=== PATIENT | female | born 1975 | race Two or more races ===

== ENCOUNTER → 2020-11-04 | Outpatient (CLI) | payer OTHER ==
[2020-09-28 15:00] VITALS: BP 94/52
[~2020-11-04] MED LIST: ALBU2.5V8 NEB; LEVO750T5 PO; NITR100C6 PO; PRED-220 PO; SUMA50TA3 PO
--- NOTE | 2020-11-05 08:28 | RAD ---
CT THORAX WO INDICATION: ILD COMPARISON STUDY: 09/12/2020. TECHNIQUE: Unenhanced axial images were obtained through the lungs and upper abdomen. Coronal and sa gittal multiplanar reconstructions were also obtained. PQRS compliance statement: One or more of the following individualized dose reduction techniques were utilized for this examinat ion: 1. Automated exposure control 2. Adjustment of the mA and/or kV according to patient size 3. Use of iterative reconstruction technique FINDINGS: Lungs and Airways: Bilateral mid and lower lung predominant groundglass opacities, peribronchovascula r interstitial thickening, architectural distortion, and traction bronchiectasis. No honeycombing. Pleura: The pleural spaces are normal. Heart and Mediastinum: The visualized thyroid gland is normal in size and attenuation. No axillary or supraclavicular lymphadenopathy. No mediastinal, hilar or retrocrural lymphadenopathy. Cardiomegaly. The great vessels of the thorax are normal. Abdomen: The visualized abdominal organs demonstrate no abnormality. Bones and Soft Tissues: The visualized skeletal structures and soft tissues of the chest wall are wit hin normal limits. IMPRESSION: Findings of interstitial lung disease, such as NSIP. No honeycombing. Electronically signed by: Mina Grijalva MD (11/05/2020 8:26 AM) [id number]
== END ==
LOC: CT 10:36
PROVIDERS: ATTEND Internal Medicine Critical Care Medicine
DX: J84.9 Interstitial pulmonary disease, unspecified (principal); I51.7 Cardiomegaly
CPT/HCPCS: 71250

== ENCOUNTER 2020-11-11 15:15 | Emergency (ER) | payer OTHER ==
[~2020-11-11] VITALS: Ht 157.5 cm; Wt 68.1 kg
[2020-11-11 15:39] VITALS: BP 103/56
[2020-11-11] MEDS ORDERED: DEXAMETHASONE 4 MG TABLET PO ONE (16:00)
--- NOTE | 2020-11-11 16:18 | RAD ---
XR CHEST 1V CLINICAL INDICATIONS: Reason: fever, cough, COVID PATIENT UNDER INVESTIGATION COMPARISON: September 26, 2020. Findings: Bibasilar interstitial lung infiltrates are again evident which has improved on the left si de and stable on the right side. No pleural effusion or pneumothorax is seen. The heart size, pulmona ry vasculature, mediastinum and both heydi are stable. IMPRESSION: Bibasilar interstitial lung infiltrates with improvement on the left side since September 26, 2020. Electronically signed by: Edward Bustillo MD (11/11/2020 4:16 PM) [id number]
[2020-11-11 16:23] LABS: MONONUCLEOSIS PATIENT NEGATIVE (NEGATIVE)
--- NOTE | 2020-11-11 16:27 | PHYS DOC ---
Past Medical History Past Medical History: Other Additional Past Medical Histor: cervical cancer, fibromyalgia, RA, sjogren syndrome Past Surgical History: Additional Past Surgical Histo: cervial ca removed Smoking Status: Never Smoker Alcohol Use: None General Adult EDM: Chief Complaint: FEVER HPI: HPI: Patient is a 45 year old [f__sex] who presents with [] Review of Systems: Review of Systems: Constitutional: Denies fever or chills Eyes: Denies redness or eye pain HENT: Denies nasal congestion or sore throat Respiratory: Denies cough or shortness of breath Cardiovascular: Denies chest pain or palpitations GI: Denies abdominal pain, nausea, or vomiting : Denies dysuria or hematuria Musculoskeletal: Denies back pain or joint pain Integument: Denies rash or skin lesions Neurologic: Denies headache, focal weakness or sensory changes Complete systems were reviewed and found to be within normal limits, except as documented in this note. Heart Score: C/O Chest Pain: N/A Current Medications: Current Medications Medications (Trade) Dose Ordered Sig/Lawrence Start Time Stop Time Status Last Admin Dose Admin Dexamethasone (Decadron) 10 mg 1X ONCE 11/11/20 16:00 11/11/20 16:01 DC Allergies: Allergies: Allergies Coded Allergies Type Severity Reaction Last Updated Verified amoxicillin Allergy Intermediate rash 09/13/20 Yes hydrocodone Adverse Reaction Intermediate upset stomache and anxiety 09/13/20 Yes oxycodone Adverse Reaction Intermediate upset stomache and anxiety 09/13/20 Yes Physical Exam: PE: Constitutional: Well developed, well nourished, no acute distress, non-toxic appearance HENT: Normocephalic, atraumatic Eyes: PERRL, EOMI, conjunctiva normal, no discharge Neck: Normal range of motion, no tenderness, supple Lungs & Thorax: No respiratory distress, equal chest rise and fall Abdomen: Soft, no tenderness Skin: Warm, dry, no erythema, no rash Back: No tenderness, no CVA tenderness Extremities: No tenderness, ROM intact, no edema Neurologic: Alert and oriented X 3, normal motor function, normal sensory function, no focal deficits noted Psychologic: Affect normal, judgment normal Current Patient Data: Labs: Laboratory Tests Test 11/11/20 16:01 Heterophil Agglutinins Negative (NEGATIVE) Vital Signs: Vital Signs Date Time Temp Pulse Resp B/P (MAP) Pulse Ox O2 Delivery O2 Flow Rate FiO2 11/11/20 15:39 98.5 100 20 103/56 (72) 100 Nasal Cannula 2.0 98.5 EKG: EKG: [] Radiology/Procedures: Radiology/Procedures: PROCEDURE: CHEST AP ONLY XR CHEST 1V CLINICAL INDICATIONS: Reason: fever, cough, COVID PATIENT UNDER INVESTIGATION COMPARISON: September 26, 2020. Findings: Bibasilar interstitial lung infiltrates are again evident which has improved on the left side and stable on the right side. No pleural effusion or pneumothorax is seen. The heart size, pulmonary vasculature, mediastinum and both heydi are stable. IMPRESSION: Bibasilar interstitial lung infiltrates with improvement on the left side since September 26, 2020. Electronically signed by: Edward Bustillo MD (11/11/2020 4:16 PM) [id number] Course & Med Decision Making: Course & Med Decision Making Pertinent Labs and Imaging studies reviewed. (See chart for details) Patient stable for discharge with outpatient follow-up with PCP. Discussed findings and plan with patient, who acknowledges understanding and agreement. DeliveryEdge Disclaimer: DeliveryEdge Disclaimer: This electronic medical record was generated, in whole or in part, using a voice recognition dictation system. Departure Departure Impression: Primary Impression: Pharyngitis Qualified Codes: J02.9 - Acute pharyngitis, unspecified Additional Impressions: Pneumonia Qualified Codes: J18.9 - Pneumonia, unspecified organism Suspected 2019 novel coronavirus infection Disposition: HOME / SELF CARE / HOMELESS Condition: STABLE Referrals: NON,STAFF (PCP) Patient Instructions: Pneumonia, Adult, Vpfi-zv-Ocvf, Viral and Bacterial Pharyngitis, [id number]-Iexl Additional Instructions: Take over the counter Tylenol and/or Ibuprofen for fever/chills. Please take new antibiotic as prescribed. You have been tested for or diagnosed with COVID-19. It is an infection caused by a new type of coronavirus. COVID-19 will cause cold-like or mild flu symptoms in most. It can cause more severe symptoms like problems breathing in some. There is no treatment for COVID-19. The body will clear the infection over time. Self-care will help to ease discomfort. Steps to Take: Self-Care Rest as needed. Healthy habits may help you feel better. Steps include: Choose healthy foods including fruits and vegetables. Drink water throughout the day. Get plenty of sleep each night. If you smoke, try to quit. It may ease breathing. Avoid alcohol. Keep Others Healthy The virus can spread to others. Droplets are released every time you sneeze or cough. The droplets can get into the mouth, nose, or eyes of people near you and lead to infection. To lower the chances of spreading COVID-19 to others: Stay at home until your doctor has said it is safe to leave. If you tested positive this will mean staying isolated until both of the following are true: At least 7 days have passed since the start of illness. You are free of fever for at least 72 hours without the use of medicine. During this time: - Avoid public areas, events, or transportation. Do not return to work or [employer] until your doctor has said it is safe to do so. - Call ahead if you need to go to a medical center. Let them know you may have COVID-19. It will help them guide you where to go. They may also ask you to wear a facemask when you come to the office. - If you call for emergency medical services, let them know you may have COVID- 19. While at home: - Try to avoid close contact with others. Stay about 6 feet away. - If possible, spend most of your time in a separate room from others. - Use a face mask if you will be in close contact with others such as sharing a room or vehicle. - Have someone wipe down common surfaces in the home. Use household funeral service licensee every day on areas like doorknobs, counters, or sinks. - Cough or sneeze into a tissue. Throw the tissue away right after use. If a tissue is not available, cough or sneeze into your elbow. - Wash your hands often. Wash them after sneezing or coughing. Use soap and water and wash for at least 20 seconds. Alcohol based hand char dust cleaner and salvager can be used if soap and water is not available. - Do not prepare food for others. Avoid sharing personal items like forks, spoons, or toothbrushes. - Avoid close contact with pets while you are sick. There is no evidence of the virus passing to pets. This is a safety step until more is known about this virus. Isolation can be frustrating. Social interaction can help. Keep in touch with friends and family through phone and tech options. You can still interact with others in your home, just keep a safe distance of about 6 feet. Follow-up: Your doctors office will check in with you to see if there are any changes in your health. You may be asked to keep track of symptoms to share with them. They will also let you know when you are clear to be in public again. Problems to Look Out For: Contact your doctor if your recovery is not going as you expect. Get emergency care if you have problems such as: - Trouble breathing - Nonstop chest pain or pressure - Changes in awareness, confusion, or problems waking - Lips or face have bluish color - Worsening of symptoms If you think you have an emergency, call for emergency medical services right away. As taken from [facility] Azithromycin (ZITHROMAX) 250 Mg Tablet 1 PKG PO UD for pneumonia, #6 TAB Take 2 tablets on day 1 and then 1 tablet each day for the next 4 days as directed Prov: CALEB SHEPPARD DO 11/11/20 CALEB SHEPPARD DO November 11, 2020 16:27
[2020-11-11] MEDS ORDERED: AZIT250T PO (17:49)
--- NOTE | 2020-11-14 09:49 | NUR ---
IP: Informed pt of negative COVID test. pt verbalized understanding.
== END 2020-11-11 18:57 | disposition home or self-care (01) ==
LOC: ER 15:15
DX: J18.9 Pneumonia, unspecified organism (principal); Z20.822 Contact with and (suspected) exposure to COVID-19; J02.9 Acute pharyngitis, unspecified; Z88.1 Allergy status to other antibiotic agents; Z88.5 Allergy status to narcotic agent
CPT/HCPCS: 71045; 86308; 87070; 87880; 99284; U0003; U0005

== ENCOUNTER → 2020-12-09 | Outpatient (CLI) | payer OTHER ==
[2020-11-11 15:39] VITALS: BP 103/56
[~2020-12-09] MED LIST changes: +AZIT250T PO
--- NOTE | 2020-12-09 09:43 | CARD ---
MR#: [id number] Date of Study: 12/09/2020 Ordering Physician: TASNEEM PENA, Referring Physician: Leanne ALLEN: Rasheed Heath [facility] APPROVED REPORT EXAM: Two-dimensional and M-mode echocardiogram with Doppler and color Doppler. Other Information Quality : Average Rhythm : NSR INDICATION Dyspnea 2D DIMENSIONS Left Atrium(2D)3.6 (1.6-4.0cm)IVSd0.8 (0.7-1.1cm) Aortic Root(2D)3.0 (2.0-3.7cm)LVDd4.7 (3.9-5.9cm) LVOT Diameter2.1 (1.8-2.4cm)PWd1.1 (0.7-1.1cm) IVSs1.4 (0.8-1.2cm)LVDs3.5 (2.5-4.0cm) FS (%) 25.5 %PWs1.4 (0.8-1.2cm) SV52.4 mlLVEF(%)50.2 (>50%) Aortic Valve AoV Peak Willie.120.4cm/sAoV VTI20.4cm AO Peak GR.5.8mmHgLVOT Peak Willie.105.1cm/s LVOT VTI 18.15cmAO Mean GR.3mmHg CODY (VMAX)3.11nv6ZTA (VTI)3.17cm2 Mitral Valve MV E Izozwmvy58.2cm/sMV DECEL [id number] MV A Ugkogjea84.9cm/sMV GZV12pm E/A Ratio0.8MVA (PHT)2.54cm2 TDI E/Lateral E'5.4E/Medial E'7.6 Pulmonary Valve PV Peak Oluqpzla66.6cm/sPV Peak Grad.3mmHg Tricuspid Valve TR P. Ctkdysmf185dm/sTR Peak Gr.22mmHg LEFT VENTRICLE The left ventricle is normal size. There is normal left ventricular wall thickness. The left ventricu lar systolic function is normal. The ejection fraction is 55-60%. There is normal LV segmental wall m otion. Transmitral Doppler flow pattern is Grade I-abnormal relaxation pattern. No left ventricle thr ombus noted on this study. There is no ventricular septal defect visualized. RIGHT VENTRICLE The right ventricle is borderline dilated. There is normal right ventricular wall thickness. The righ t ventricular systolic function is normal. ATRIA The left atrium size is normal. The right atrium size is normal. The interatrial septum is intact wit h no evidence for an atrial septal defect or patent foramen ovale as noted on 2-D or Doppler imaging. AORTIC VALVE The aortic valve is normal in structure and function. Doppler and Color Flow revealed no significant aortic regurgitation. There is no significant aortic valvular stenosis. There is no aortic valvular v egetation. MITRAL VALVE The mitral valve is normal in structure and function. There is no evidence of mitral valve prolapse. There is no mitral valve stenosis. Doppler and Color Flow revealed no mitral valve regurgitation note d. TRICUSPID VALVE The tricuspid valve is normal in structure and function. Doppler and Color Flow revealed trace tricus pid regurgitation. There is no tricuspid valve prolapse or vegetation. There is no tricuspid valve st enosis. PULMONIC VALVE The pulmonary valve is normal in structure and function. Doppler and Color Flow revealed no pulmonic valvular regurgitation. There is no pulmonic valvular stenosis. GREAT VESSELS The aortic root is normal in size. The ascending aorta is normal in size. The pulmonary artery is nor mal. The IVC is normal in size and collapses >50% with inspiration. PERICARDIAL EFFUSION There is no pleural effusion. There is no evidence of significant pericardial effusion. Critical Notification Critical Value: No <Conclusion> The left ventricular systolic function is normal. The ejection fraction is 55-60%. There is normal LV segmental wall motion. Transmitral Doppler flow pattern is Grade I-abnormal relaxation pattern. Trace tricuspid regurgitation. There is no evidence of significant pericardial effusion. Signed by : Tasneem Pena, Electronically Approved : 12/09/2020 09:42:54
== END ==
LOC: ECHO 07:49
PROVIDERS: ATTEND Internal Medicine Cardiovascular Disease
DX: R06.09 Other forms of dyspnea (principal)
CPT/HCPCS: 93306

== ENCOUNTER → 2021-01-25 | Outpatient (CLI) | payer OTHER ==
[~2021-01-25] MED LIST changes: +REGADENOSON 0.4 MG/5 ML DISP.SYRIN. IV ONE
--- NOTE | 2021-01-25 12:10 | RAD ---
MR#: [id number] Date of Study: 01/25/2021 Ordering Physician: TASNEEM PAGE, Referring Physician: CUCO ALLEN Tech: RT Charles (R) (N) APPROVED REPORT Test Type: Pharmacological Stress Nurse/Tech: Simi Mitchell RN Test Indications: Dyspnea on exertion Cardiac History: See EMR. Medications: See EMR. Medical History: See EMR. Resting ECG: SR Resting Heart Rate: 69 bpm Resting Blood Pressure: 115/74mmHg Pretest Chest Pain: No chest pain Nurse/Tech Notes Lungs CTA, Heart tones regular. Consent: The procedure was explained to the patient in lay terms. Informed consent was witnessed. Tereso eout was entered into [employer]. History and Stress Test performed by OG Beltran, TREVON (R) (N) Pharm. Details Pharmacologic stress testing was performed using 0.4mg per 5ml of regadenoson given intravenously ove r 7-10 seconds. Stress Symptoms No chest pain or symptoms. POST EXERCISE Reason for Termination: Infusion complete Max HR: 115 bpm Max Blood Pressure: 129/83mmHg Blood Pressure response to exercise: Normal blood pressure response during stress. Heart Rate response to exercise: WNL Chest Pain: No. Arrhythmia: No. ST Change: No. INTERPRETATION Stress EKG Conclusion: Baseline EKG showed sinus rhythm. No ischemic changes at peak stress. No arr hythmias. Imaging Protocol IMAGE PROTOCOL: Rest Tc-99m/stress Tc-99m 1 day Rest: Stress: Viability: Radiopharm.Tc99m FvvygmpkjTd30s Sestamibi Lwco97vRs 31mCi Duration 15min. 10min. Img Date 01/25/2021 01/25/2021 Inj-Img Lnmp33iku. 60min. Rest Admin Site:IV - Right AntecubitalAdministrator:RT Charles (R)(N) Stress Admin Site: IV - Right AntecubitalAdministrator: OG Beltran, TREVON (R)(N) STRESS DATA End Diast. Vol.95.0mlAv. Heart Rate79.0bpm End Syst. Vol.21.0mlCO Index BSA0.0L/min Myocardial Ifng909.0gEject. Hysdbozx61.0% Stress Rates Pk. Fill Rate3.73EDV/secLVtime Pk. Fill 135.13msec Pk. Empty Rate3.99ESV/secLVtime Pk. Vmfzb745.68msec 1/3 Pk. Fill1.92EDV/sec Stress Scores Regional WT0.00Summed WT1.00 Regional WM0.00Summed WM0.00 Study quality was good. Left Ventricular size was Normal at Rest and Stress. Lung uptake was . Left Ventricular ejection fraction is 73%. The rest and stress images show normal perfusion, normal contraction and thickening. LV Perf. Quant 17 Seg. SSS6.00 17 Seg. SRS9.00 17 Seg. SDS2.00 Stress Defect Extent (% LAD)9.40Rest Defect Extent (% LAD)24.40Rev. Defect Extent (% LAD)0.00 Stress Defect Extent (% LCX) 10.00Rest Defect Extent (% LCX)22.50Rev. Defect Extent (% LCX)5.00 Stress Defect Extent (% RCA)0.00Rest Defect Extent (% RCA)17.80Rev. Defect Extent (% RCA)0.00 Stress Defect Extent (% DANNY)9.30Rest Defect Extent (% DANNY)25.70Rev. Defect Extent (% DANNY)0.90 Conclusion 1. Regadenoson cardioisotope stress test did not show any evidence of ischemia or infarct. 2. Normal left ventricular systolic function with ejection fraction calculated at 73%. 3. Low risk for cardiac events. Signed by : Tasneem Page, Electronically Approved : 01/25/2021 12:10:30
== END ==
LOC: NM 09:14
PROVIDERS: ATTEND Internal Medicine Cardiovascular Disease
DX: R06.09 Other forms of dyspnea (principal)
CPT/HCPCS: 78452; 93017; A9500; J2785